=== PATIENT | female | born 1965 | race Caucasian/White ===

== ENCOUNTER → 2023-11-15 | Outpatient (CLI) | payer BC ==
[2023-11-15 10:08] LABS: HEMATOCRIT 39.3 % (36.0-47.0)
[2023-11-15 10:14] LABS: BASO % 0.4 % (0.0-1.0); EOS # 0.2 10^3/uL (0.0-0.5); EOS % 2.1 % (0.0-3.0); HEMOGLOBIN 13.1 g/dl (12.0-15.5); LYMPH # 2.1 10^3/uL (1.5-5.0); LYMPH % 28.9 % (24.0-44.0); MEAN CORPUSCULAR HEMOGLOBIN 30.5 pg (27.0-33.0); MEAN CORPUSCULAR HGB CONC 32.8 g/dl (32.0-36.5); MONO # 0.7 10^3/uL (0.0-0.8); MONO % 9.7 % (2.0-8.0); NEUTROPHILS # 4.3 10^3/uL (1.5-8.5); NEUTROPHILS % 58.5 % (36.0-66.0); PLATELET COUNT, AUTOMATED 287 10^3/uL (150-450); WHITE BLOOD COUNT 7.3 10^3/uL (4.0-10.0)
[2023-11-15 10:44] LABS: ALBUMIN 3.6 G/DL (3.2-5.2); ALKALINE PHOSPHATASE 75 U/L (46-116); ALT/SGPT 24 U/L (7.0-40); AST/SGOT 13 U/L (<34); BILIRUBIN,TOTAL 0.6 MG/DL (0.3-1.2); BLOOD UREA NITROGEN 28 MG/DL (9-23); CALCIUM LEVEL 9.9 MG/DL (8.5-10.1); CARBON DIOXIDE LEVEL 26 MMOL/L (20-31); CHLORIDE LEVEL 107 MMOL/L (98-107); CHOLESTEROL LEVEL 195 MG/DL (<200); CHOLESTEROL RISK RATIO 3.48 (<5); CREATININE FOR GFR 0.91 MG/DL (0.55-1.30); GLOMERULAR FILTRATION RATE > 60.0 (>51); GLUCOSE, FASTING 103 MG/DL (60-100); HDL CHOLESTEROL 55.9 MG/DL (>40); LDL CHOLESTEROL 124.9 MG/DL (<100); NON-HDL-C 139.1 MG/DL; POTASSIUM SERUM 4.9 MMOL/L (3.5-5.1); SODIUM LEVEL 137 MMOL/L (136-145); TOTAL PROTEIN 6.8 G/DL (5.7-8.2); TRIGLYCERIDES LEVEL 71 MG/DL (<150)
[2023-11-15 10:49] LABS: THYROID STIMULATING HORMONE 3.444 uIU/ML (0.55-4.78)
[2023-11-15 10:50] LABS: VITAMIN B12 LEVEL 439 PG/ML (211-911)
[2023-11-15 10:59] LABS: HEMOGLOBIN A1c 5.2 % (4.0-6.0)
[2023-11-15 11:14] LABS: FREE T4 1.42 NG/DL (0.89-1.76)
== END ==
LOC: M PLALAB 07:50 → MERGE 07:50
PROVIDERS: ATTEND Student in an Organized Health Care Education/Training Program
DX: R25.1 Tremor, unspecified (principal)

== ENCOUNTER → 2023-12-02 | Outpatient (CLI) | payer BC | LOC: MERGE 11-15 07:30 → M WHC 11-15 07:37 | PROVIDERS: ATTEND Student in an Organized Health Care Education/Training Program | DX: Z12.31 Encounter for screening mammogram for malignant neoplasm of breast (principal) ==

== ENCOUNTER → 2024-05-29 | Outpatient (CLI) | payer BC ==
[2024-05-29 10:36] LABS: BASO % 0.4 % (0.0-1.0); EOS # 0.1 10^3/uL (0.0-0.5); EOS % 1.7 % (0.0-3.0); HEMATOCRIT 43.1 % (36.0-47.0); HEMOGLOBIN 13.8 g/dl (12.0-15.5); LYMPH # 2.5 10^3/uL (1.5-5.0); LYMPH % 32.5 % (24.0-44.0); MEAN CORPUSCULAR HEMOGLOBIN 29.9 pg (27.0-33.0); MEAN CORPUSCULAR VOLUME 93.3 fl (80.0-96.0); MONO # 0.6 10^3/uL (0.0-0.8); MONO % 7.6 % (2.0-8.0); NEUTROPHILS # 4.5 10^3/uL (1.5-8.5); NEUTROPHILS % 57.5 % (36.0-66.0); PLATELET COUNT, AUTOMATED 296 10^3/uL (150-450); RED BLOOD COUNT 4.62 10^6/uL (4.00-5.40); WHITE BLOOD COUNT 7.8 10^3/uL (4.0-10.0)
[2024-05-29 11:02] LABS: CREATININE, URINE 224.8 MG/DL; MAU/CREAT RATIO 3.1 MCG/MG (0.0-30.0)
[2024-05-29 11:09] LABS: HEMOGLOBIN A1c 5.3 % (4.0-6.0)
[2024-05-29 11:12] LABS: ALBUMIN 3.9 G/DL (3.2-5.2); BILIRUBIN,TOTAL 0.5 MG/DL (0.3-1.2); CALCIUM LEVEL 10.3 MG/DL (8.5-10.1); CHOLESTEROL RISK RATIO 3.45 (<5); CREATININE FOR GFR 0.84 MG/DL (0.55-1.30); POTASSIUM SERUM 5.3 MMOL/L (3.5-5.1); TOTAL PROTEIN 7.3 G/DL (5.7-8.2)
== END ==
LOC: M PLALAB 09:05
PROVIDERS: ATTEND Student in an Organized Health Care Education/Training Program
DX: I10 Essential (primary) hypertension (principal)